=== PATIENT | male | born 1985 | race Caucasian/White ===

== ENCOUNTER → 2016-04-28 | Outpatient (CLI) | payer MEDICAID | LOC: M OUTALCOH 08:17 | PROVIDERS: ATTEND Psychiatry & Neurology Psychiatry | DX: F10.20 Alcohol dependence, uncomplicated (principal); F12.20 Cannabis dependence, uncomplicated ==

== ENCOUNTER 2016-06-04 08:45 | Outpatient (RCR) | payer MEDICAID | END 2016-06-06 | LOC: M OUTALCOH 08:45 | PROVIDERS: ATTEND Psychiatry & Neurology Psychiatry | DX: F10.20 Alcohol dependence, uncomplicated (principal); F12.20 Cannabis dependence, uncomplicated; F17.200 Nicotine dependence, unspecified, uncomplicated ==

== ENCOUNTER → 2016-07-07 | Outpatient (RCR) | payer MEDICAID | LOC: M OUTALCOH 06-09 11:55 | PROVIDERS: ATTEND Psychiatry & Neurology Psychiatry | DX: F10.20 Alcohol dependence, uncomplicated (principal); F12.20 Cannabis dependence, uncomplicated; F17.200 Nicotine dependence, unspecified, uncomplicated ==

== ENCOUNTER → 2016-08-06 | Outpatient (RCR) | payer MEDICAID ==
[~2016-08-06] MED LIST: AUGM875T28 PO; CIPRHCOTIC AD; IBUP-1022; IBUP80TA PO; PERC5TAB12 PO; ULTR50TA8 PO
== END ==
LOC: M OUTALCOH 07-09 10:32
PROVIDERS: ATTEND Psychiatry & Neurology Psychiatry
DX: F12.20 Cannabis dependence, uncomplicated (principal); F17.200 Nicotine dependence, unspecified, uncomplicated

== ENCOUNTER → 2016-09-06 | Outpatient (RCR) | payer MEDICAID | LOC: M OUTALCOH 08-11 16:00 | PROVIDERS: ATTEND Psychiatry & Neurology Psychiatry | DX: F10.20 Alcohol dependence, uncomplicated (principal); F12.20 Cannabis dependence, uncomplicated; F17.200 Nicotine dependence, unspecified, uncomplicated ==

== ENCOUNTER 2016-09-26 23:47 | Emergency (ER) | payer MEDICAID, OTHER ==
[~2016-09-26] VITALS: Ht 175.3 cm; Wt 72.7 kg
[2016-09-26 23:48] VITALS: BP 156/83
[2016-09-26] MEDS ORDERED: IBUP-1022 (23:57)
[2016-09-27] MEDS ORDERED: ULTR50TA8 PO (00:30)
[2016-09-27] MEDS ORDERED: AUGMENTIN 875 MG TAB PO ONE (00:30)
[2016-09-27] MEDS ORDERED: traMADol 50 MG TAB (BULK 4 TAB ED) PO ONE (00:30)
[2016-09-27] MEDS ORDERED: AUGM875T28 PO (00:30)
[2016-09-27] MEDS ORDERED: traMADol 50 MG TAB PO ONE (00:45)
[2016-09-28] MEDS ORDERED: IBUP80TA PO (14:35)
[2016-09-28] MEDS ORDERED: CIPRHCOTIC AD (14:36)
== END 2016-09-27 00:52 | disposition home or self-care (01) ==
LOC: M ED 23:47
DX: K02.9 Dental caries, unspecified (principal); F17.210 Nicotine dependence, cigarettes, uncomplicated; Z88.8 Allergy status to other drugs, medicaments and biological substances; Z88.5 Allergy status to narcotic agent

== ENCOUNTER 2016-09-28 05:01 | Emergency (ER) | payer MEDICAID, OTHER ==
[~2016-09-28 05:01] MED LIST changes: -CIPRHCOTIC AD; -IBUP80TA PO; -PERC5TAB12 PO
[2016-09-28 05:05] VITALS: BP 152/72
[2016-09-28] MEDS ORDERED: BUPIVACAINE HCL 0.5% 10 ML VIAL SC ONE (05:45)
[2016-09-28] MEDS ORDERED: LIDOCAINE W/EPINEPHRINE 1% 20ML VIAL SC ONE (05:45)
[2016-09-28] MEDS ORDERED: CETACAINE SPRAY 20GM (FLOOR STOCK) TOP ONE (05:45)
[2016-09-28] MEDS ORDERED: IBUP80TA PO (14:35)
[2016-09-28] MEDS ORDERED: CIPRHCOTIC AD (14:36)
== END 2016-09-28 06:03 | disposition home or self-care (01) ==
LOC: M ED 05:01
DX: K02.9 Dental caries, unspecified (principal); F17.210 Nicotine dependence, cigarettes, uncomplicated; Z79.2 Long term (current) use of antibiotics; Z88.8 Allergy status to other drugs, medicaments and biological substances; Z88.5 Allergy status to narcotic agent

== ENCOUNTER 2016-09-28 13:43 | Emergency (ER) | payer OTHER ==
[~2016-09-28] VITALS: Ht 175.3 cm; Wt 72.7 kg
[2016-09-28] MEDS ORDERED: IBUP80TA PO (14:35)
[2016-09-28] MEDS ORDERED: CIPRHCOTIC AD (14:36)
[2016-09-28 14:44] VITALS: BP 146/74
[2016-09-28] MEDS ORDERED: IBUPROFEN 800 MG TAB PO ONE (14:45)
[2016-09-28] MEDS ORDERED: CIPROFLOXACIN HC OTIC SUSPENSION AD ONE (14:45)
== END 2016-09-28 14:49 | disposition home or self-care (01) ==
LOC: M ED 13:43
DX: H60.91 Unspecified otitis externa, right ear (principal); K08.89 Other specified disorders of teeth and supporting structures; K02.9 Dental caries, unspecified; F17.210 Nicotine dependence, cigarettes, uncomplicated; F10.10 Alcohol abuse, uncomplicated; F43.10 Post-traumatic stress disorder, unspecified; Z79.899 Other long term (current) drug therapy; Z79.2 Long term (current) use of antibiotics; Z88.8 Allergy status to other drugs, medicaments and biological substances; Z88.5 Allergy status to narcotic agent

== ENCOUNTER 2016-09-28 18:04 | Emergency (ER) | payer OTHER ==
[~2016-09-28] VITALS: Ht 180.3 cm; Wt 72.7 kg
[~2016-09-28 18:04] MED LIST changes: +CIPRHCOTIC AD; +IBUP80TA PO
[2016-09-28] MEDS ORDERED: BUPIVACAINE HCL 0.5% 10 ML VIAL SC ONE (20:15)
[2016-09-28] MEDS ORDERED: CETACAINE SPRAY 20GM (FLOOR STOCK) TOP ONE (20:15)
[2016-09-28] MEDS ORDERED: LIDOCAINE W/EPINEPHRINE 1% 20ML VIAL SC ONE (20:15)
[2016-09-28] MEDS ORDERED: MORPHINE 10 MG/ML 1ML VIAL IM ONE (20:30)
[2016-09-28 21:26] VITALS: BP 146/78
== END 2016-09-28 21:29 | disposition home or self-care (01) ==
LOC: M ED 18:04
DX: K02.9 Dental caries, unspecified (principal); F10.10 Alcohol abuse, uncomplicated; F43.10 Post-traumatic stress disorder, unspecified; F17.210 Nicotine dependence, cigarettes, uncomplicated; Z79.2 Long term (current) use of antibiotics; Z88.8 Allergy status to other drugs, medicaments and biological substances; Z88.5 Allergy status to narcotic agent

== ENCOUNTER 2016-10-04 14:00 | Outpatient (RCR) | payer MEDICAID | END 2016-10-07 | LOC: M OUTALCOH 14:00 | PROVIDERS: ATTEND Psychiatry & Neurology Psychiatry | DX: F10.20 Alcohol dependence, uncomplicated (principal); F12.20 Cannabis dependence, uncomplicated; F17.200 Nicotine dependence, unspecified, uncomplicated ==

== ENCOUNTER 2016-10-25 15:00 | Outpatient (RCR) | payer MEDICAID ==
[2016-10-30] MEDS ORDERED: PERC5TAB12 PO (19:37)
== END 2016-11-06 ==
LOC: M OUTALCOH 15:00
PROVIDERS: ATTEND Psychiatry & Neurology Psychiatry
DX: F10.20 Alcohol dependence, uncomplicated (principal); F12.20 Cannabis dependence, uncomplicated; F17.200 Nicotine dependence, unspecified, uncomplicated

== ENCOUNTER 2016-10-30 16:37 | Emergency (ER) | payer MEDICAID, OTHER ==
[~2016-10-30] VITALS: Ht 175.3 cm; Wt 72.7 kg
[2016-10-30] MEDS ORDERED: PERCOCET 5MG/325MG TAB PO ONE (17:15)
[2016-10-30 19:25] VITALS: BP 129/67
[2016-10-30] MEDS ORDERED: PERC5TAB12 PO (19:37)
--- NOTE | 2016-10-31 13:20 | REP ---
LEFT ANKLE SERIES: Four views of the left ankle performed. There is a possible tiny avulsion fracture at the medial margin of the talus. The ankle mortise is anatomic. There is mild soft tissue swelling. No other fracture or dislocation is seen. Signed by Roc Fowler MD 10/31/2016 07:04 P
--- NOTE | 2016-10-31 13:20 | REP ---
LEFT FOOT, FOUR VIEWS: There is no evidence of an acute fracture, dislocation or intrinsic bone disease. IMPRESSION: No fracture or dislocation. Signed by Roc Fowler MD 10/31/2016 07:04 P
== END 2016-10-30 19:45 | disposition home or self-care (01) ==
LOC: M ED 16:37
DX: S96.912A Strain of unspecified muscle and tendon at ankle and foot level, left foot, initial encounter (principal); S93.402A Sprain of unspecified ligament of left ankle, initial encounter; V18.4XXA Pedal cycle driver injured in noncollision transport accident in traffic accident, initial encounter; Y92.410 Unspecified street and highway as the place of occurrence of the external cause; Y93.55 Activity, bike riding; Y99.8 Other external cause status; F17.210 Nicotine dependence, cigarettes, uncomplicated; Z88.5 Allergy status to narcotic agent; Z88.8 Allergy status to other drugs, medicaments and biological substances

== ENCOUNTER 2018-03-26 21:31 | Emergency (ER) | payer OTHER ==
[~2018-03-26 21:31] MED LIST changes: +PERC5TAB12 PO
[2018-03-26 21:43] VITALS: BP 142/87
[2018-03-26 22:41] LABS: BASO # 0.1 10^3/uL (0.0-0.2); BASO % 0.7 % (0.0-1.0); EOS # 0.1 10^3/uL (0.0-0.50); EOS % 1.3 % (0.0-3.0); HEMATOCRIT 49.2 % (42.0-52.0); HEMOGLOBIN 16.6 g/dl (13.5-17.5); LYMPH # 2.6 10^3/uL (1.5-4.5); LYMPH % 26.6 % (24.0-44.0); MEAN CORPUSCULAR HEMOGLOBIN 32.9 pg (27.0-33.0); MEAN CORPUSCULAR HGB CONC 33.7 g/dl (32.0-36.5); MEAN CORPUSCULAR VOLUME 97.4 fl (80.0-96.0); MONO # 0.7 10^3/uL (0.0-0.8); MONO % 7.6 % (0.0-5.0); NEUTROPHILS # 6.2 10^3/uL (1.8-7.7); NEUTROPHILS % 63.2 % (36.0-66.0); PLATELET COUNT, AUTOMATED 228 10^3/uL (150-450); RED BLOOD COUNT 5.05 10^6/uL (4.30-6.10); WHITE BLOOD COUNT 9.8 10^3/uL (4.0-10.0)
[2018-03-26 22:43] LABS: AMPHETAMINES LEVEL URINE NEGATIVE (NEGATIVE); BARBITURATES URINE NEGATIVE (NEGATIVE); BENZODIAZEPINES URINE NEGATIVE (NEGATIVE); CANNABINOIDS URINE POSITIVE (NEGATIVE); COCAINE METABOLITE URINE NEGATIVE (NEGATIVE); METHADONE URINE NEGATIVE (NEGATIVE); OPIATES URINE NEGATIVE (NEGATIVE); PHENCYCLIDINE URINE NEGATIVE (NEGATIVE)
--- NOTE | 2018-03-26 22:58 | REPVR ---
EXAM: CT Head Without Contrast EXAM DATE/TIME: 03/26/18 (10:08pm) CLINICAL HISTORY: 32 year old male. Recent fall. Head injury. TECHNIQUE: Axial computed tomography images of the head without contrast. All CT scans at this facility use at least one of these dose optimization techniques: automated exposure control; mA and/or kV adjustment per patient size (includes targeted exams where dose is matched to clinical indication); or iterative reconstruction. COMPARISON: CT HEAD of 05/20/14 FINDINGS: Brain: Unremarkable. No acute hemorrhage. No significant white matter disease. No cerebral edema. Ventricles: Normal. No ventriculomegaly. Bones/joints: Unremarkable. No acute fracture. Sinuses: Visualized sinuses are unremarkable. No acute sinusitis. Mastoid air cells: Visualized mastoid air cells are unremarkable. No mastoid effusion. Soft tissues: Unremarkable. IMPRESSION: No acute intracranial pathology is appreciated. Electronically signed by: Lisandra Barrientos On 03/26/2018 22:58:18 PM
--- NOTE | 2018-03-26 23:05 | REPVR ---
EXAM: CT Cervical Spine Without Contrast EXAM DATE/TIME: 03/26/18 (10:08pm) CLINICAL HISTORY: 32 year old, male. Recent fall. Head injury. Initial encounter. TECHNIQUE: Axial computed tomography images of the cervical spine without intravenous contrast. All CT scans at this facility use at least one of these dose optimization techniques: automated exposure control; mA and/or kV adjustment per patient size (includes targeted exams where dose is matched to clinical indication); or iterative reconstruction. Coronal and sagittal reformatted images were created and reviewed. COMPARISON: CT CERVICAL SPINE of 05/20/14 FINDINGS: Vertebrae: No acute fracture. Normal alignment. Discs/Spinal canal/Neural foramina: No spinal stenosis. No neural foraminal narrowing. Soft tissues: Unremarkable. Lungs: Lung apices are normal. IMPRESSION: No acute findings. Electronically signed by: Lisandra Barrientos On 03/26/2018 23:05:07 PM
[2018-03-26 23:33] LABS: ALBUMIN 4.5 GM/DL (3.2-5.2); ALT/SGPT 26 U/L (12-78); BILIRUBIN,DIRECT 0.1 MG/DL (0.0-0.2); BILIRUBIN,TOTAL 0.3 MG/DL (0.2-1.0); BLOOD UREA NITROGEN 9 MG/DL (7-18); CALCIUM LEVEL 8.5 MG/DL (8.5-10.1); CARBON DIOXIDE LEVEL 25 MEQ/L (21-32); CHLORIDE LEVEL 111 MEQ/L (98-107); CREATININE FOR GFR 0.96 MG/DL (0.70-1.30); ETHYL ALCOHOL (ETHANOL) 0.277 % (0.000-0.010); GLOMERULAR FILTRATION RATE > 60.0 (>60); GLUCOSE, FASTING 87 MG/DL (70-100); POTASSIUM SERUM 4.1 MEQ/L (3.5-5.1); SODIUM LEVEL 145 MEQ/L (136-145); TOTAL PROTEIN 7.7 GM/DL (6.4-8.2)
== END 2018-03-26 23:26 | disposition home or self-care (01) ==
LOC: M ED 21:31
DX: S01.112A Laceration without foreign body of left eyelid and periocular area, initial encounter (principal); S01.81XA Laceration without foreign body of other part of head, initial encounter; S00.03XA Contusion of scalp, initial encounter; V48.0XXA Car driver injured in noncollision transport accident in nontraffic accident, initial encounter; Y92.9 Unspecified place or not applicable; Y93.9 Activity, unspecified; Y99.9 Unspecified external cause status; Z72.0 Tobacco use; Z88.5 Allergy status to narcotic agent; Z88.6 Allergy status to analgesic agent
CPT/HCPCS: 70450; 72125; 80048; 80076; 80307; 85025; 93041; 94760; 99284; G0480

== ENCOUNTER → 2018-03-29 | Outpatient (CLI) | payer MEDICAID | LOC: M OUTALCOH 08:15 | PROVIDERS: ATTEND Psychiatry & Neurology Psychiatry | DX: Z13.89 Encounter for screening for other disorder (principal); F10.20 Alcohol dependence, uncomplicated ==

== ENCOUNTER → 2018-04-06 | Outpatient (RCR) | payer MEDICAID | LOC: M OUTALCOH 09:09 | PROVIDERS: ATTEND Psychiatry & Neurology Psychiatry | DX: F10.20 Alcohol dependence, uncomplicated (principal); F12.20 Cannabis dependence, uncomplicated; F17.200 Nicotine dependence, unspecified, uncomplicated ==

== ENCOUNTER 2018-05-04 16:00 | Outpatient (RCR) | payer MEDICAID | END 2018-05-07 | LOC: M OUTALCOH 16:00 | PROVIDERS: ATTEND Psychiatry & Neurology Psychiatry | DX: F10.20 Alcohol dependence, uncomplicated (principal); F12.20 Cannabis dependence, uncomplicated; F17.200 Nicotine dependence, unspecified, uncomplicated ==

== ENCOUNTER 2018-06-02 14:00 | Outpatient (RCR) | payer MEDICAID | END 2018-06-06 | LOC: M OUTALCOH 14:00 | PROVIDERS: ATTEND Psychiatry & Neurology Psychiatry | DX: F10.20 Alcohol dependence, uncomplicated (principal); F12.20 Cannabis dependence, uncomplicated; F17.200 Nicotine dependence, unspecified, uncomplicated ==

== ENCOUNTER 2018-06-13 08:57 | Emergency (ER) | payer MEDICAID, OTHER ==
[~2018-06-13] VITALS: Ht 175.3 cm; Wt 74.2 kg
--- NOTE | 2018-06-13 10:00 | REP ---
RIGHT WRIST, FOUR VIEWS: Four views of the right wrist performed. There is a nondisplaced fracture of the distal radius. There is a fracture of the ulnar styloid process. I see no other evidence of acute fracture or dislocation. There is an old healed fracture of the fifth metacarpal. Electronically Signed by Roc Fowler MD 06/14/2018 02:55 P
[2018-06-13] MEDS ORDERED: PERCOCET 5MG/325MG TAB PO ONE (10:15)
[2018-06-13] MEDS ORDERED: PERC5TAB12 PO (10:26)
[2018-06-13 10:50] VITALS: BP 140/68
--- NOTE | 2018-06-13 11:16 | REP ---
RIGHT ELBOW, FOUR VIEWS: There is no evidence of an acute fracture, dislocation or intrinsic bone disease. IMPRESSION: No fracture or dislocation. Electronically Signed by Roc Fowler MD 06/14/2018 02:58 P
== END 2018-06-13 10:54 | disposition home or self-care (01) ==
LOC: M ED 08:57
DX: S52.501A Unspecified fracture of the lower end of right radius, initial encounter for closed fracture (principal); S52.611A Displaced fracture of right ulna styloid process, initial encounter for closed fracture; Z87.81 Personal history of (healed) traumatic fracture; W19.XXXA Unspecified fall, initial encounter; Y92.099 Unspecified place in other non-institutional residence as the place of occurrence of the external cause; Y93.9 Activity, unspecified; Y99.9 Unspecified external cause status; Z72.0 Tobacco use; Z88.6 Allergy status to analgesic agent; Z88.5 Allergy status to narcotic agent

== ENCOUNTER → 2018-07-07 | Outpatient (RCR) | payer MEDICAID | LOC: M OUTALCOH 06-09 14:47 | PROVIDERS: ATTEND Psychiatry & Neurology Psychiatry | DX: F10.20 Alcohol dependence, uncomplicated (principal); F12.20 Cannabis dependence, uncomplicated; F17.200 Nicotine dependence, unspecified, uncomplicated ==

== ENCOUNTER 2018-08-04 13:00 | Outpatient (RCR) | payer MEDICAID | END 2018-08-06 | LOC: M OUTALCOH 13:00 | PROVIDERS: ATTEND Psychiatry & Neurology Psychiatry | DX: F10.20 Alcohol dependence, uncomplicated (principal); F12.20 Cannabis dependence, uncomplicated; F17.200 Nicotine dependence, unspecified, uncomplicated ==

== ENCOUNTER → 2018-09-06 | Outpatient (RCR) | payer MEDICAID | LOC: M OUTALCOH 08-07 10:23 | PROVIDERS: ATTEND Psychiatry & Neurology Psychiatry | DX: F10.20 Alcohol dependence, uncomplicated (principal); F12.20 Cannabis dependence, uncomplicated; F17.200 Nicotine dependence, unspecified, uncomplicated ==

== ENCOUNTER 2018-10-04 09:37 | Outpatient (RCR) | payer MEDICAID | END 2018-10-07 | LOC: M OUTALCOH 09:37 | PROVIDERS: ATTEND Psychiatry & Neurology Psychiatry | DX: F10.20 Alcohol dependence, uncomplicated (principal); F12.20 Cannabis dependence, uncomplicated; F17.200 Nicotine dependence, unspecified, uncomplicated ==

== ENCOUNTER 2018-11-01 16:00 | Outpatient (RCR) | payer MEDICAID | END 2018-11-06 | LOC: M OUTALCOH 16:00 | PROVIDERS: ATTEND Psychiatry & Neurology Psychiatry | DX: F10.20 Alcohol dependence, uncomplicated (principal); F12.20 Cannabis dependence, uncomplicated; F17.200 Nicotine dependence, unspecified, uncomplicated ==

== ENCOUNTER 2018-11-15 08:52 | Emergency (ER) | payer MEDICAID, OTHER ==
[~2018-11-15] VITALS: Ht 175.3 cm; Wt 72.7 kg
[2018-11-15] MEDS ORDERED: KETOROLAC 30 MG/ML VIAL (J1885) IV ONE (09:15)
--- NOTE | 2018-11-15 10:06 | REP ---
CHEST: Two views. There is no evidence of acute infiltrate. No pleural effusion is seen. The heart is normal in size. The mediastinal silhouette is unremarkable. The visualized osseous structures are intact. IMPRESSION: No acute pulmonary disease. Electronically Signed by Roc Fowler MD 11/15/2018 06:21 P
[2018-11-15 10:17] LABS: BASO # 0.1 10^3/uL (0.0-0.2); BASO % 0.8 % (0.0-1.0); EOS # 0.2 10^3/uL (0.0-0.5); EOS % 1.5 % (0.0-3.0); HEMATOCRIT 42.9 % (42.0-52.0); HEMOGLOBIN 14.4 g/dl (13.5-17.5); LYMPH # 2.3 10^3/uL (1.5-5.0); LYMPH % 22.9 % (24.0-44.0); MEAN CORPUSCULAR HEMOGLOBIN 32.8 pg (27.0-33.0); MEAN CORPUSCULAR HGB CONC 33.6 g/dl (32.0-36.5); MEAN CORPUSCULAR VOLUME 97.7 fl (80.0-96.0); MONO # 0.8 10^3/uL (0.0-0.8); MONO % 8.3 % (0.0-5.0); NEUTROPHILS # 6.7 10^3/uL (1.5-8.5); NEUTROPHILS % 65.7 % (36.0-66.0); PLATELET COUNT, AUTOMATED 176 10^3/uL (150-450); RED BLOOD COUNT 4.39 10^6/uL (4.30-6.10); WHITE BLOOD COUNT 10.2 10^3/uL (4.0-10.0)
[2018-11-15 10:48] LABS: ALT/SGPT 120 U/L (12-78); BILIRUBIN,DIRECT 0.4 MG/DL (0.0-0.2); BLOOD UREA NITROGEN 14 MG/DL (7-18); CALCIUM LEVEL 8.8 MG/DL (8.5-10.1); CARBON DIOXIDE LEVEL 23 MEQ/L (21-32); CHLORIDE LEVEL 106 MEQ/L (98-107); CPK CREATINE PHOSPHOKINASE 157 U/L (39-308); CREATININE FOR GFR 1.08 MG/DL (0.70-1.30); GLOMERULAR FILTRATION RATE > 60.0 (>60); GLUCOSE, FASTING 64 MG/DL (70-100); LIPASE 89 U/L (73-393); MB/CK RELATIVE INDEX 0.64 (< OR =4); NT-PRO BNP 53 PG/ML (<125); POTASSIUM SERUM 3.4 MEQ/L (3.5-5.1); SODIUM LEVEL 142 MEQ/L (136-145); TOTAL PROTEIN 6.6 GM/DL (6.4-8.2); TROPONIN I < 0.02 NG/ML (< 0.10)
[2018-11-15 11:06] LABS: ETHYL ALCOHOL (ETHANOL) < 0.003 % (0.000-0.010)
[2018-11-15 11:29] LABS: ERYTHROCYTE SEDIMENTATION RATE 3 mm/hr (0-15)
--- NOTE | 2018-11-15 12:11 | ECGEPIP ---
[facility] - ED Test Date: 2018-11-15 Pat Name: ALISSA MORA Department: Room: - Gender: Male [employer] Chief: : 1985 Requested By: Casie Uribe Order Number: [id number] Reading MD: Casie Uribe Measurements Intervals [place] Rate: 62 P: 52 WA: 127 QRS: 74 QRSD: 102 T: 23 QT: 398 QTc: 407 Interpretive Statements SINUS RHYTHM WITH SINUS ARRHYTHMIA No prior Electronically Signed on 11-15-2018 12:10:50 EDT by Casie Uribe
[2018-11-15 12:21] LABS: AMPHETAMINES LEVEL URINE NEGATIVE (NEGATIVE); BARBITURATES URINE NEGATIVE (NEGATIVE); BENZODIAZEPINES URINE NEGATIVE (NEGATIVE); CANNABINOIDS URINE NEGATIVE (NEGATIVE); COCAINE METABOLITE URINE NEGATIVE (NEGATIVE); METHADONE URINE NEGATIVE (NEGATIVE); OPIATES URINE NEGATIVE (NEGATIVE); PHENCYCLIDINE URINE NEGATIVE (NEGATIVE)
[2018-11-15 13:08] LABS: HEPATITIS B SURFACE ANTIGEN NEGATIVE (NEGATIVE)
[2018-11-15 13:36] LABS: HEPATITIS C VIRUS ABY INDEX 0.1 INDEX (<0.8)
[2018-11-15 13:37] LABS: HEPATITIS B CORE ANTIBODY IGM NEGATIVE (NEGATIVE)
[2018-11-15 13:38] LABS: HEPATITIS A ANTIBODY IGM NEGATIVE (NEGATIVE)
[2018-11-15 14:45] LABS: CK-MB VALUE MASS < 1.0 NG/ML (<3.6); CPK CREATINE PHOSPHOKINASE 141 U/L (39-308); MB/CK RELATIVE INDEX 0.71 (< OR =4); TROPONIN I < 0.02 NG/ML (< 0.10)
[2018-11-15 15:09] VITALS: BP 130/60
--- NOTE | 2018-11-16 10:46 | ECGEPIP ---
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
== END 2018-11-15 15:14 | disposition home or self-care (01) ==
LOC: M ED 08:52 → EDBD 08:52 → M ED 15:14
DX: M94.0 Chondrocostal junction syndrome [Tietze] (principal); R07.89 Other chest pain; F43.10 Post-traumatic stress disorder, unspecified; F17.210 Nicotine dependence, cigarettes, uncomplicated; Z88.5 Allergy status to narcotic agent; Z88.8 Allergy status to other drugs, medicaments and biological substances
CPT/HCPCS: 71046; 80048; 80076; 80307; 82550; 82553; 83690; 83880; 84443; 85025; 85379; 85652; 86705; 86709; 86803; 87340; 93005; 93041; 94760; 96374; 99285; G0480; J1885

== ENCOUNTER 2018-12-01 11:01 | Outpatient (RCR) | payer MEDICAID | END 2018-12-07 | LOC: M OUTALCOH 11:01 | PROVIDERS: ATTEND Psychiatry & Neurology Psychiatry | DX: F10.20 Alcohol dependence, uncomplicated (principal); F12.20 Cannabis dependence, uncomplicated; F17.200 Nicotine dependence, unspecified, uncomplicated ==

== ENCOUNTER 2019-05-07 11:31 | Emergency (ER) | payer MEDICAID, OTHER ==
[~2019-05-07] VITALS: Ht 175.3 cm; Wt 73.5 kg
[2019-05-07] MEDS ORDERED: KETOROLAC 60 MG/2 ML VIAL (J1885) IM ONE (12:45)
[2019-05-07] MEDS ORDERED: CYCLOBENZAPRINE 10 MG TAB PO ONE (12:45)
--- NOTE | 2019-05-07 13:20 | REP ---
LUMBAR SPINE SERIES: SIX VIEWS. HISTORY: Pain after a fall. FINDINGS: Lumbar vertebral body heights are preserved. Alignment is normal. There is minimal disc space narrowing at L4-5. Pedicles and posterior elements are intact. Sacrum and SI joints are unremarkable. Psoas margins are symmetric. IMPRESSION: Minimal disc space narrowing at L4-5. Otherwise negative. No fracture or collapse seen. Electronically Signed by Onur Helton MD 05/07/2019 03:39 P
--- NOTE | 2019-05-07 13:21 | REP ---
PELVIS RIGHT HIP: THREE VIEWS. HISTORY: Pain after a fall. FINDINGS: AP view of the pelvis demonstrates an intact bony pelvic ring. No pelvic or sacral fracture is seen. No hip fracture is noted. There is tendon insertion site spurring on the lesser trochanter of the right proximal femur. There is some bony hypertrophy at the superior acetabular margin bilaterally as well. These are chronic changes. IMPRESSION: No fracture or subluxation seen. Electronically Signed by Onur Helton MD 05/07/2019 03:39 P
[2019-05-07] MEDS ORDERED: CYCL5TAB PO (13:24)
[2019-05-07] MEDS ORDERED: KETO10TAB PO (13:24)
[2019-05-07 13:48] VITALS: BP 111/80
== END 2019-05-07 13:38 | disposition home or self-care (01) ==
LOC: M ED 11:31
DX: S30.810A Abrasion of lower back and pelvis, initial encounter (principal); S30.0XXA Contusion of lower back and pelvis, initial encounter; W10.9XXA Fall (on) (from) unspecified stairs and steps, initial encounter; Y92.9 Unspecified place or not applicable; Y93.89 Activity, other specified; Y99.9 Unspecified external cause status; F43.10 Post-traumatic stress disorder, unspecified; F10.10 Alcohol abuse, uncomplicated; F17.200 Nicotine dependence, unspecified, uncomplicated; Z88.8 Allergy status to other drugs, medicaments and biological substances; Z88.5 Allergy status to narcotic agent
CPT/HCPCS: 72110; 73502; 96372; 99283; J1885

== ENCOUNTER 2019-10-14 09:39 | Emergency (ER) | payer MEDICAID, OTHER, SELFPAY ==
[~2019-10-14] VITALS: Ht 175.3 cm; Wt 68.8 kg
[~2019-10-14 09:39] MED LIST changes: +CYCL5TAB PO; +KETO10TAB PO
[2019-10-14] MEDS ORDERED: BOOSTRIX/ADACEL VACCINE (DIPHTH/PERTUSS/ACELL/TETANUS) 0.5ML SYR IM ONE (10:15)
--- NOTE | 2019-10-14 10:32 | REPVR ---
PROCEDURE INFORMATION: Exam: CT Head Without Contrast Exam date and time: 10/14/2019 10:16 AM Age: 34 years old Clinical indication: Injury or trauma; Fall; Initial encounter; Blunt trauma (contusions or hematomas); Additional info: Fall/head injury TECHNIQUE: Imaging protocol: Computed tomography of the head without contrast. Radiation optimization: All CT scans at this facility use at least one of these dose optimization techniques: automated exposure control; mA and/or kV adjustment per patient size (includes targeted exams where dose is matched to clinical indication); or iterative reconstruction. COMPARISON: CT Head without contrast 03/26/2018 9:59 PM FINDINGS: Brain: Examination of the brain demonstrates normal structure and attenuation.The cortical dos santos / white matter interfaces are preserved throughout the brain.No acute infarction, masses or hemorrhage is seen. Ventricles: The ventricular system is not dilated and is appropriate for the patient's age. Bones/joints: Unremarkable. No acute fracture. Sinuses: Visualized sinuses are unremarkable. No fluid levels. Mastoid air cells: Visualized mastoid air cells are well aerated. Soft tissues: Unremarkable. IMPRESSION: No acute infarction, masses or hemorrhage is seen. No acute intracranial abnormality is identified. Electronically signed by: Binh Fleming On 10/14/2019 10:32:16 AM
--- NOTE | 2019-10-14 10:32 | REPVR ---
PROCEDURE INFORMATION: Exam: XR Left Wrist Exam date and time: 10/14/2019 10:14 AM Age: 34 years old Clinical indication: Other: Pain; Additional info: Pain, swelling S/P fall TECHNIQUE: Imaging protocol: XR Left wrist. Views: 3 or more views. COMPARISON: None provided. FINDINGS: Bones/joints: There is an acute, mildly displaced fracture through the distal radius. This is mildly comminuted with horizontal and vertical components, including extension to the radiocarpal compartment. No other fracture is identified. The joint spaces are normally aligned. Soft tissues: There is associated soft tissue swelling. IMPRESSION: Acute distal radial fracture. Electronically signed by: Davion Valladares On 10/14/2019 10:32:21 AM
--- NOTE | 2019-10-14 10:33 | REPVR ---
PROCEDURE INFORMATION: Exam: XR Left Forearm Exam date and time: 10/14/2019 10:14 AM Age: 34 years old Clinical indication: Other: Fall; Additional info: L forearm ttp S/P fall TECHNIQUE: Imaging protocol: XR Left forearm. Views: 2 views. COMPARISON: CR - Wrist, complete LEFT 10/14/2019 10:03:25 AM FINDINGS: Bones/joints: Redemonstrated is an acute fracture of the distal radius. No other fracture is identified. Soft tissues: There is soft tissue swelling distally. IMPRESSION: Distal radial fracture, as on wrist radiographs of the same day. No other fracture identified in the forearm. Electronically signed by: Davion Valladares On 10/14/2019 10:33:45 AM
--- NOTE | 2019-10-14 10:35 | REPVR ---
PROCEDURE INFORMATION: Exam: CT Cervical Spine Without Contrast Exam date and time: 10/14/2019 10:16 AM Age: 34 years old Clinical indication: Injury or trauma; Fall; Work related; Initial encounter; Blunt trauma; Additional info: Fall/head injury TECHNIQUE: Imaging protocol: Computed tomography images of the cervical spine without contrast. Radiation optimization: All CT scans at this facility use at least one of these dose optimization techniques: automated exposure control; mA and/or kV adjustment per patient size (includes targeted exams where dose is matched to clinical indication); or iterative reconstruction. COMPARISON: CT Spine,cervical w/o contrast 03/26/2018 9:59 PM FINDINGS: Vertebrae: The cervical vertebral bodies are normal height and alignment.No acute fracture or dislocation is seen. Discs/Spinal canal/Neural foramina: There are mild degenerative changes including degenerative disc disease, spondylosis and facet degenerative changes. Epidural space: There is no evidence of epidural masses or hemorrhage. Prevertebral Space: The prevertebral soft tissues appear normal. Soft tissues: There is straightening of the cervical spine which could be secondary to positioning or muscle spasm. There are no soft tissue masses or fluid collections. Lungs: Lung apices are normal. IMPRESSION: No acute fracture or dislocation is seen. Electronically signed by: Binh Fleming On 10/14/2019 10:35:41 AM
[2019-10-14] MEDS ORDERED: ACETAMINOPHEN 500 MG TAB PO ONE (10:45)
[2019-10-14] MEDS ORDERED: NEOSPORIN OINT 0.9 GM PKT TOP ONE (11:15)
[2019-10-14] MEDS ORDERED: PERCOCET 5MG/325MG TAB PO ONE (11:15)
[2019-10-14] MEDS ORDERED: PERC5TAB12 PO (11:15)
[2019-10-14 11:18] VITALS: BP 142/83
== END 2019-10-14 11:23 | disposition home or self-care (01) ==
LOC: M ED 09:39
DX: S00.03XA Contusion of scalp, initial encounter (principal); S52.502A Unspecified fracture of the lower end of left radius, initial encounter for closed fracture; W01.198A Fall on same level from slipping, tripping and stumbling with subsequent striking against other object, initial encounter; Y92.89 Other specified places as the place of occurrence of the external cause; F17.200 Nicotine dependence, unspecified, uncomplicated; Z88.5 Allergy status to narcotic agent

== ENCOUNTER 2022-07-17 20:58 | Emergency (ER) | payer MEDICAID ==
[~2022-07-17] VITALS: Ht 175.3 cm; Wt 74.2 kg
[2022-07-17 23:23] VITALS: BP 135/78; TEMP 97.7; O2SAT 99
== END 2022-07-17 23:22 | disposition home or self-care (01) ==
LOC: M ED 20:58
DX: S00.85XA Superficial foreign body of other part of head, initial encounter (principal); W45.8XXA Other foreign body or object entering through skin, initial encounter; Y92.009 Unspecified place in unspecified non-institutional (private) residence as the place of occurrence of the external cause; Y93.89 Activity, other specified; Y99.8 Other external cause status; F17.200 Nicotine dependence, unspecified, uncomplicated; Z88.5 Allergy status to narcotic agent

== ENCOUNTER 2022-10-16 14:50 | Emergency (ER) | payer OTHER ==
[~2022-10-16] VITALS: Ht 175.3 cm; Wt 72.7 kg
[2022-10-16 18:00] VITALS: BP 131/80; TEMP 97.8; O2SAT 98
[2022-10-16] MEDS ORDERED: CEPH500C PO (18:46)
[2022-10-16] MEDS ORDERED: PERI12LIQ PO (18:46)
== END 2022-10-16 18:55 | disposition home or self-care (01) ==
LOC: M ED 14:50
DX: S01.511A Laceration without foreign body of lip, initial encounter (principal); V18.0XXA Pedal cycle driver injured in noncollision transport accident in nontraffic accident, initial encounter; Y92.89 Other specified places as the place of occurrence of the external cause; Y93.55 Activity, bike riding; Y99.8 Other external cause status; M19.90 Unspecified osteoarthritis, unspecified site; F10.10 Alcohol abuse, uncomplicated; F17.200 Nicotine dependence, unspecified, uncomplicated; Z88.5 Allergy status to narcotic agent; Z79.899 Other long term (current) drug therapy

== ENCOUNTER 2023-03-13 14:11 | Emergency (ER) | payer OTHER ==
[~2023-03-13] VITALS: Ht 175.3 cm; Wt 78.0 kg
[~2023-03-13 14:11] MED LIST changes: +CEPH500C PO; +PERI12LIQ PO
[2023-03-13] MEDS ORDERED: NALT50TA4 PO (14:18)
[2023-03-13] MEDS ORDERED: LEXA1TAB PO (14:18)
[2023-03-13] MEDS ORDERED: PRAZ2CAP PO (14:18)
[2023-03-13] MEDS ORDERED: IBUP80TA PO (15:26)
[2023-03-13 15:46] VITALS: BP 134/67; TEMP 97.7; O2SAT 95
== END 2023-03-13 15:48 | disposition home or self-care (01) ==
LOC: M ED 14:11
DX: M25.522 Pain in left elbow (principal); Z88.8 Allergy status to other drugs, medicaments and biological substances; Z79.899 Other long term (current) drug therapy; Z79.1 Long term (current) use of non-steroidal anti-inflammatories (NSAID)

== ENCOUNTER → 2023-04-04 | Outpatient (CLI) | payer OTHER ==
[~2023-04-04] MED LIST changes: +LEXA1TAB PO; +NALT50TA4 PO; +PRAZ2CAP PO
== END ==
LOC: M SOG 08:04
PROVIDERS: ATTEND Physician Assistant
DX: M25.522 Pain in left elbow (principal)

== ENCOUNTER → 2023-04-05 | Outpatient (CLI) | payer OTHER | LOC: M SOG 13:04 | PROVIDERS: ATTEND Physician Assistant | DX: M25.522 Pain in left elbow (principal) ==

== ENCOUNTER → 2023-04-25 | Outpatient (CLI) | payer OTHER | LOC: M SOG 07:53 | PROVIDERS: ATTEND Physician Assistant | DX: M25.522 Pain in left elbow (principal) ==

== ENCOUNTER 2023-06-13 20:57 | Emergency (ER) | payer OTHER ==
[~2023-06-13] VITALS: Ht 172.7 cm; Wt 165.0 kg
[2023-06-13] MEDS: diphenhydrAMINE 50MG/ML VIAL IM ONE (21:14)
[2023-06-13] MEDS: OLANZapine INTRAMUSCULAR 10MG VIAL IM ONE (21:14)
[2023-06-13] MEDS: LORazepam 2 MG/ML 1ML VIAL IM ONE (21:15)
[2023-06-13] MEDS ORDERED: MIDAZOLAM INJ 2MG/2ML VIAL IV STA (21:30)
[2023-06-13] MEDS: MIDAZOLAM INJ 2MG/2ML VIAL IM STA (21:39)
[2023-06-13 22:06] LABS: HEMATOCRIT 41.6 % (42.0-52.0); HEMOGLOBIN 14.1 g/dl (13.5-17.5); MEAN CORPUSCULAR HEMOGLOBIN 32.9 pg (27.0-33.0); MEAN CORPUSCULAR HGB CONC 33.9 g/dl (32.0-36.5); PLATELET COUNT, AUTOMATED 216 10^3/uL (150-450); RED BLOOD COUNT 4.29 10^6/uL (4.30-6.10)
[2023-06-13] MEDS: LIDOCAINE 2% MDV 20ML VIAL SC ONE (22:20)
[2023-06-13 22:30] LABS: SALICYLATE LEVEL < 3.0 MG/DL (<30)
[2023-06-13 22:31] LABS: ALBUMIN 3.5 G/DL (3.2-5.2); ALKALINE PHOSPHATASE 71 U/L (46-116); ALT/SGPT 20 U/L (7.0-40); AST/SGOT 28 U/L (<34); BILIRUBIN,DIRECT 0.1 MG/DL (<0.4); BILIRUBIN,TOTAL 0.3 MG/DL (0.3-1.2); BLOOD UREA NITROGEN 8 MG/DL (9-23); CALCIUM LEVEL 8.1 MG/DL (8.5-10.1); CARBON DIOXIDE LEVEL 26 MMOL/L (20-31); CHLORIDE LEVEL 114 MMOL/L (98-107); CREATININE FOR GFR 0.89 MG/DL (0.70-1.30); GLOMERULAR FILTRATION RATE > 60.0 (>60); GLUCOSE, FASTING 82 MG/DL (60-100); POTASSIUM SERUM 4.1 MMOL/L (3.5-5.1); SODIUM LEVEL 148 MMOL/L (136-145); TOTAL PROTEIN 6.4 G/DL (5.7-8.2)
[2023-06-13 22:33] LABS: THYROID STIMULATING HORMONE 3.085 uIU/ML (0.55-4.78)
[2023-06-13 22:45] LABS: ETHYL ALCOHOL (ETHANOL) 0.281 % (0.000-0.010)
[2023-06-13 22:48] LABS: CPK CREATINE PHOSPHOKINASE 278 U/L (46-171)
[2023-06-13 22:52] LABS: AMPHETAMINES LEVEL URINE NEGATIVE (NEGATIVE); BARBITURATES URINE NEGATIVE (NEGATIVE); BENZODIAZEPINES URINE NEGATIVE (NEGATIVE); CANNABINOIDS URINE POSITIVE (NEGATIVE); COCAINE METABOLITE URINE NEGATIVE (NEGATIVE); METHADONE URINE NEGATIVE (NEGATIVE); OPIATES URINE NEGATIVE (NEGATIVE); PHENCYCLIDINE URINE NEGATIVE (NEGATIVE)
[2023-06-14] MEDS ORDERED: CEPH500C PO (08:56)
[2023-06-14 09:30] VITALS: BP 134/68; TEMP 98.4; O2SAT 96
== END 2023-06-14 09:42 | disposition home or self-care (01) ==
LOC: M ED 20:57
DX: F10.129 Alcohol abuse with intoxication, unspecified (principal); F43.21 Adjustment disorder with depressed mood; S61.216A Laceration without foreign body of right little finger without damage to nail, initial encounter; Z88.5 Allergy status to narcotic agent; Z79.1 Long term (current) use of non-steroidal anti-inflammatories (NSAID); Z79.83 Long term (current) use of bisphosphonates; Z79.899 Other long term (current) drug therapy; Y92.009 Unspecified place in unspecified non-institutional (private) residence as the place of occurrence of the external cause; Y93.9 Activity, unspecified; Y99.9 Unspecified external cause status
CPT/HCPCS: 12002; 80048; 80076; 80143; 80307; 82077; 82550; 84443; 85027; 87635; 96372; 99285; J1200; J2060; J2250; J2359

== ENCOUNTER 2023-11-13 09:07 | Emergency (ER) | payer OTHER ==
[~2023-11-13] VITALS: Ht 175.3 cm; Wt 72.0 kg
[2023-11-13 09:17] VITALS: TEMP 97.5
[2023-11-13 11:00] VITALS: BP 145/70; O2SAT 95
[2023-11-13 11:00] LABS: BASO % 0.4 % (0.0-1.0); EOS % 0.3 % (0.0-3.0); HEMATOCRIT 44.4 % (42.0-52.0); HEMOGLOBIN 15.1 g/dl (13.5-17.5); LYMPH # 1.3 10^3/uL (1.5-5.0); LYMPH % 11.8 % (24.0-44.0); MEAN CORPUSCULAR HEMOGLOBIN 33.1 pg (27.0-33.0); MEAN CORPUSCULAR VOLUME 97.4 fl (80.0-96.0); MONO % 8.6 % (2.0-8.0); NEUTROPHILS # 8.9 10^3/uL (1.5-8.5); NEUTROPHILS % 78.5 % (36.0-66.0); PLATELET COUNT, AUTOMATED 221 10^3/uL (150-450); RED BLOOD COUNT 4.56 10^6/uL (4.30-6.10); WHITE BLOOD COUNT 11.4 10^3/uL (4.0-10.0)
[2023-11-13 11:27] LABS: ALBUMIN 4.1 G/DL (3.2-5.2); ALKALINE PHOSPHATASE 87 U/L (46-116); ALT/SGPT 34 U/L (7.0-40); AST/SGOT 81 U/L (<34); BILIRUBIN,TOTAL 0.6 MG/DL (0.3-1.2); BLOOD UREA NITROGEN 7 MG/DL (9-23); CALCIUM LEVEL 9.2 MG/DL (8.5-10.1); CARBON DIOXIDE LEVEL 24 MMOL/L (20-31); CHLORIDE LEVEL 108 MMOL/L (98-107); GLOMERULAR FILTRATION RATE > 60.0 (>60); GLUCOSE, FASTING 77 MG/DL (60-100); POTASSIUM SERUM 4.2 MMOL/L (3.5-5.1); SODIUM LEVEL 140 MMOL/L (136-145); TOTAL PROTEIN 7.1 G/DL (5.7-8.2)
== END 2023-11-13 11:32 | disposition short-term general hospital (02) ==
LOC: M ED 09:07 → EDBD 09:07 → M ED 11:32
DX: S12.101A Unspecified nondisplaced fracture of second cervical vertebra, initial encounter for closed fracture (principal); Y92.9 Unspecified place or not applicable; Y93.9 Activity, unspecified; Y99.9 Unspecified external cause status; Z88.5 Allergy status to narcotic agent; Z79.2 Long term (current) use of antibiotics; Z79.1 Long term (current) use of non-steroidal anti-inflammatories (NSAID); Z79.899 Other long term (current) drug therapy

== ENCOUNTER → 2024-08-27 | Outpatient (CLI) | payer OTHER ==
[~2024-08-27] MED LIST changes: -CYCL5TAB PO; +CYCL5TAB4 PO
== END ==
LOC: M RAD 06:47
PROVIDERS: ATTEND Family Medicine Addiction Medicine
DX: S12.130A Unspecified traumatic displaced spondylolisthesis of second cervical vertebra, initial encounter for closed fracture (principal); M43.22 Fusion of spine, cervical region; W18.30XA Fall on same level, unspecified, initial encounter; Y92.009 Unspecified place in unspecified non-institutional (private) residence as the place of occurrence of the external cause

== ENCOUNTER → 2024-09-12 | Outpatient (CLI) | payer OTHER ==
[~2024-09-12] MED LIST changes: +ISOVUE-370 76% 100 ML VIAL As Ordered ONE
== END ==
LOC: M RAD 10:46
PROVIDERS: ATTEND Neurological Surgery
DX: S12.130D Unspecified traumatic displaced spondylolisthesis of second cervical vertebra, subsequent encounter for fracture with routine healing (principal); Z98.1 Arthrodesis status
CPT/HCPCS: 70498; Q9967

== ENCOUNTER 2024-12-04 10:49 | Emergency (ER) | payer OTHER, SELFPAY ==
[~2024-12-04] VITALS: Ht 175.3 cm; Wt 76.6 kg
[~2024-12-04 10:49] MED LIST changes: -IBUP-1022; +IBUP600T42; -ISOVUE-370 76% 100 ML VIAL As Ordered ONE
[2024-12-04] MEDS ORDERED: BACI500O8 TOP (13:34)
[2024-12-04 13:38] VITALS: BP 137/89; TEMP 97.6; O2SAT 98
== END 2024-12-04 13:44 | disposition home or self-care (01) ==
LOC: M ED 10:49
DX: T23.271A Burn of second degree of right wrist, initial encounter (principal); Z88.5 Allergy status to narcotic agent; Z79.2 Long term (current) use of antibiotics; Z79.1 Long term (current) use of non-steroidal anti-inflammatories (NSAID); Z79.899 Other long term (current) drug therapy; T31.0 Burns involving less than 10% of body surface